=== PATIENT | female | born 1980 | race Caucasian/White ===

== ENCOUNTER 2016-11-11 07:51 | Emergency (ER) | payer BC, MEDICAID ==
[2016-11-11 07:51] VITALS: BMI 26.5
[2016-11-11] MEDS ORDERED: Sodium Chloride 0.9% 1,000 ML IV ONE (08:19)
[2016-11-11] MEDS ORDERED: diaZEpam 10 mg/2 ml Inj IVP STA (08:19)
--- NOTE | 2016-11-11 08:25 | C.PDOC ---
History Of Present Illness 36 y/o female presents to the ED with complaints of left sided neck pain x 4 days. She describes the pain as a stiffness. She reports that it started the morning after a previously strenous nightly workout. She took motrin and applied hot packs without relief. Denies trauma, fever, midline pain, chest pain , SOB, nausea, vomiting, headache or any other complaints. Denies vision changes, weakness, numbness or tingling. Time Seen by Provider: 11/11/16 08:08 Chief Complaint (Nursing): Back Pain History Per: Patient History/Exam Limitations: no limitations Onset/Duration Of Symptoms: Days Current Symptoms Are (Timing): Still Present Severity: Mild Previous Symptoms: None Associated Symptoms: None Recent travel outside of the [place]: No Past Medical History Reviewed: Historical Data, Nursing Documentation, Vital Signs Vital Signs: Last Vital Signs Temp 98.3 F 11/11/16 07:56 Pulse 59 L 11/11/16 07:56 Resp 16 11/11/16 07:56 BP 131/93 H 11/11/16 07:56 Pulse Ox 99 11/11/16 12:16 - Medical History PMH: Anxiety, Depression Surgical History: Family History: States: Unknown Family Hx - Social History Hx Tobacco Use: Yes Hx Alcohol Use: No Hx Substance Use: No - Immunization History Hx Tetanus Toxoid Vaccination: Yes Hx Influenza Vaccination: No Hx Pneumococcal Vaccination: No Review Of Systems Except As Marked, All Systems Reviewed And Found Negative. Constitutional: Negative for: Fever, Chills Eyes: Negative for: Vision Change, Conjunctivae Inflammation Cardiovascular: Negative for: Chest Pain Respiratory: Negative for: Cough, Shortness of Breath, SOB with Excertion, Wheezing Gastrointestinal: Negative for: Nausea, Vomiting Musculoskeletal: Positive for: Neck Pain (stiffness to L side). Negative for: Back Pain Neurological: Negative for: Weakness, Numbness, Incoordination, Change in Speech , Confusion, Seizures, Altered Mental Status, Headache, Dizziness Physical Exam - Physical Exam Appears: Well, Non-toxic, No Acute Distress Skin: Warm, Dry, No Rash Head: Atraumatic, Normacephalic Eye(s): bilateral: Normal Inspection, PERRL, EOMI Neck: Normal ROM, No Midline Cervical Tenderness, Paracervical Tenderness ( paraspinal muscle spasm to L side), Supple Chest: Symmetrical Cardiovascular: Rhythm Regular Respiratory: Normal Breath Sounds, No Rales, No Rhonchi, No Wheezing Gastrointestinal/Abdominal: Normal Exam, Soft, No Tenderness Extremity: Normal ROM (upper and lower extremities) Pulses: Left Radial: Normal, Right Radial: Normal Neurological/Psych: Oriented x3, Normal Speech, Normal Cognition, Normal Cranial Nerves, Normal Motor, Normal Sensation Gait: Steady ED Course And Treatment O2 Sat by Pulse Oximetry: 99 (room air) Pulse Ox Interpretation: Normal Medical Decision Making Medical Decision Making: Patient has palpable muscle spasm. She is neurologically intact. She has symptoms consistent with musculoskeletal pain/spasm Ordered valium, toradol and IV fluids and flexeril After medication, patient reports symptoms are improved. Disposition - Disposition Disposition: HOME/ ROUTINE Disposition Time: 11:28 Condition: GOOD Additional Instructions: Motrin for pain. Flexeril for severe pain. Return to ED if condition worsens. Follow-up with PMD within 2 days. Prescriptions: Cyclobenzaprine [Flexeril] 5 mg PO TID #20 tab Instructions: Muscle Spasm (ED) Forms: Work Excuse - Clinical Impression Clinical Impression: Muscle spasm, Neck pain - Scribe Statement The provider has reviewed the documentation as recorded by the Dolly Tan Provider Attestation: All medical record entries made by the Dolly were at my direction and personally dictated by me. I have reviewed the chart and agree that the record accurately reflects my personal performance of the history, physical exam, medical decision making, and the department course for this patient. I have also personally directed, reviewed, and agree with the discharge instructions and disposition.
[2016-11-11] MEDS ORDERED: diaZEpam 10 mg/2 ml Inj ONE (09:13)
[2016-11-11] MEDS ORDERED: Sodium Chloride 0.9% 1,000 ML ONE (09:13)
[2016-11-11 12:32] VITALS: BP 122/76; PULSE 51; RESP 18; TEMP 98.4; O2SAT 100
== END 2016-11-11 12:34 | disposition home or self-care (01) ==
LOC: C.ER 07:51
DX: M54.2 Cervicalgia (principal); M62.838 Other muscle spasm
CPT/HCPCS: 96361; 96374; 96375; 99284; J1885; J3360; J7040

== ENCOUNTER 2017-05-22 16:24 | Emergency (ER) | payer BC, OTHER ==
[2017-05-22 16:32] VITALS: BMI 25.8
[2017-05-22 16:33] VITALS: BP 118/75; PULSE 75; RESP 20; TEMP 100.4; O2SAT 99
--- NOTE | 2017-05-22 16:59 | C.PDOC ---
History Of Present Illness 37yo female, presents to ED with complaints of fever (Tmax of 104), chills, cough and myalgias for the past 2 days. She has been taking OTC Dayquil and Nyquil for her symptoms with no relief. She denies any other medical complaints. Time Seen by Provider: 05/22/17 16:31 Chief Complaint (Nursing): Flu-like Symptoms History Per: Patient History/Exam Limitations: no limitations Onset/Duration Of Symptoms: Days (2) Current Symptoms Are (Timing): Still Present Associated Symptoms: Fever, Sore Throat, Cough, Myalgias Past Medical History Reviewed: Historical Data, Nursing Documentation, Vital Signs Vital Signs: Last Vital Signs Temp 100.4 F H 05/22/17 16:32 Pulse 75 05/22/17 16:32 Resp 20 05/22/17 16:32 BP 118/75 05/22/17 16:32 Pulse Ox 99 05/22/17 17:07 - Medical History PMH: Anxiety, Depression Surgical History: Family History: States: Unknown Family Hx - Social History Hx Tobacco Use: Yes Hx Alcohol Use: No Hx Substance Use: No - Immunization History Hx Tetanus Toxoid Vaccination: Yes Hx Influenza Vaccination: No Hx Pneumococcal Vaccination: No Review Of Systems Constitutional: Positive for: Fever, Chills, Malaise Respiratory: Positive for: Cough Physical Exam - Physical Exam Appears: Non-toxic, Other (uncomfortable) Skin: Warm, Dry Eye(s): bilateral: Normal Inspection Ear(s): Bilateral: Normal Oral Mucosa: Moist Throat: Normal, No Erythema, No Exudate Neck: Normal ROM, Supple Cardiovascular: Rhythm Regular Respiratory: Normal Breath Sounds Gastrointestinal/Abdominal: Normal Exam, Soft, No Tenderness ED Course And Treatment O2 Sat by Pulse Oximetry: 99 (RA) Pulse Ox Interpretation: Normal Medical Decision Making Medical Decision Making: Impression: Flu like symptoms Plan: -- Patient to be discharged home with prescription for Tamiflu. Instructed to increase fluid intake and to follow up with PCP in 1-2 days. Disposition Counseled Patient/Family Regarding: Diagnosis, Need For Followup, Rx Given - Disposition Referrals: [facility] [Outside] Disposition Time: 17:03 Additional Instructions: Drink increased fluids. Alternate Tylenol and Motrin for fever and bodyaches. INcreased rest. If sandro any nyquil/theraful like medications, then please read labe to make sure not taking too much of any one ingredient. Prescriptions: Oseltamivir Phosphate [Tamiflu] 75 mg PO BID #10 capsule Instructions: Influenza (ED) Forms: [facility] (Lao), General Discharge Instructions - Clinical Impression Clinical Impression: Influenza - PA / CARDIAC TECHNOLOGIST / Resident Statement MD/DO has reviewed & agrees with the documentation as recorded. - Scribe Statement The provider has reviewed the documentation as recorded by the Dolly Garland Provider Scribe Attestation: All medical record entries made by the Dolly were at my direction and personally dictated by me. I have reviewed the chart and agree that the record accurately reflects my personal performance of the history, physical exam, medical decision making, and the department course for this patient. I have also personally directed, reviewed, and agree with the discharge instructions and disposition.
== END 2017-05-22 17:13 | disposition home or self-care (01) ==
LOC: C.ER 16:24
DX: J11.1 Influenza due to unidentified influenza virus with other respiratory manifestations (principal); Z72.0 Tobacco use

== ENCOUNTER 2017-08-23 13:52 | Emergency (ER) | payer SELFPAY ==
[2017-08-23 14:02] VITALS: PULSE 79; RESP 18; TEMP 98.1; O2SAT 98; BMI 27.3
--- NOTE | 2017-08-23 17:02 | C.PDOC ---
History Of Present Illness 37 year old female presents to the ER with a complaint of a pimple to the left breast. Patient states the pimple has been slowly improving and denies any fever or drainage from the breast. Patient notes she is due to have her breast implants removed next week. Chief Complaint (Nursing): Abnormal Skin Integrity History Per: Patient History/Exam Limitations: no limitations Onset/Duration Of Symptoms: Days Current Symptoms Are (Timing): Still Present Location Of Injury: Left: Chest (Pimple) Recent travel outside of the [place]: No Past Medical History Reviewed: Historical Data, Nursing Documentation, Vital Signs Vital Signs: Last Vital Signs Temp 98.1 F 08/23/17 13:59 Pulse 79 08/23/17 13:59 Resp 18 08/23/17 13:59 BP Pulse Ox 98 08/23/17 17:03 - Medical History PMH: Anxiety, Depression Surgical History: Family History: States: Unknown Family Hx - Social History Hx Tobacco Use: Yes Hx Alcohol Use: No Hx Substance Use: No - Immunization History Hx Tetanus Toxoid Vaccination: No Hx Influenza Vaccination: Yes Hx Pneumococcal Vaccination: No Review Of Systems Constitutional: Negative for: Fever, Chills Skin: Positive for: Other (Pimple) Physical Exam - Physical Exam Appears: Non-toxic Skin: Warm, Dry Head: Atraumatic, Normacephalic Eye(s): bilateral: Normal Inspection Oral Mucosa: Moist Chest: Other (Papule noted to the 3'o clock position of the left breast, no drainage or erythema) Cardiovascular: Rhythm Regular Respiratory: Normal Breath Sounds, No Rales, No Rhonchi, No Wheezing Neurological/Psych: Oriented x3, Normal Speech ED Course And Treatment O2 Sat by Pulse Oximetry: 98 (Room air) Pulse Ox Interpretation: Normal Disposition - Disposition Referrals: [facility], [Non-Staff] - Disposition: HOME/ ROUTINE Disposition Time: 14:30 Condition: GOOD Additional Instructions: Thank you for letting us take care of you today. The emergency medical care you received today was directed at your acute symptoms. If you were prescribed any medication, please fill it and take as directed. It may take several days for your symptoms to resolve. Return to the Emergency Department if your symptoms worsen, do not improve, or if you have any other problems. Please contact your doctor or call one of the physicians/clinics you have been referred to that are listed on the Patient Visit Information form that is included in your discharge packet. Bring any paperwork you were given at discharge with you along with any medications you are taking to your follow up visit. Our treatment cannot replace ongoing medical care by a primary care provider (PCP) outside of the emergency department. Thank you for allowing the [facility] team to be part of your care today. Follow up with your surgeon as scheduled. Forms: [employer] (Mexican) - Clinical Impression Clinical Impression: Skin irritation - Scribe Statement The provider has reviewed the documentation as recorded by the Scribjay Lundberg All medical record entries made by the Rickibe were at my direction and personally dictated by me. I have reviewed the chart and agree that the record accurately reflects my personal performance of the history, physical exam, medical decision making, and the department course for this patient. I have also personally directed, reviewed, and agree with the discharge instructions and disposition.
== END 2017-08-23 14:36 | disposition home or self-care (01) ==
LOC: C.ER 13:52
DX: L98.9 Disorder of the skin and subcutaneous tissue, unspecified (principal)

== ENCOUNTER 2017-11-15 13:42 | Emergency (ER) | payer SELFPAY ==
[2017-11-15 13:43] VITALS: BMI 27.3
--- NOTE | 2017-11-15 15:22 | C.PDOC ---
History Of Present Illness 37 year old female presents to the ER with complaints of sore throat and white tongue for 1 week. Patient states that she tried to brush her tongue with no relief. Patient notes she also has mild nasal congestion. Patient denies fever, difficulty breathing, swallowing, cough, SOB and chest pain. Sick contacts: daughter with same symptoms Time Seen by Provider: 11/15/17 14:00 Chief Complaint (Nursing): ENT Problem History Per: Patient History/Exam Limitations: no limitations Onset/Duration Of Symptoms: Days Current Symptoms Are (Timing): Still Present Sick Contacts (Context): Family Member(s) (daughter) Associated Symptoms: Sore Throat, Nasal Congestion, Other (white tongue). denies: Fever Past Medical History Reviewed: Historical Data, Nursing Documentation, Vital Signs Vital Signs: Last Vital Signs Temp 99.0 F 11/15/17 15:33 Pulse 81 11/15/17 15:33 Resp 16 11/15/17 15:33 BP 121/68 11/15/17 15:33 Pulse Ox 99 11/15/17 16:59 - Medical History PMH: Anxiety, Depression Surgical History: Family History: States: Unknown Family Hx - Social History Hx Tobacco Use: Yes Hx Alcohol Use: No Hx Substance Use: No - Immunization History Hx Tetanus Toxoid Vaccination: No Hx Influenza Vaccination: Yes Hx Pneumococcal Vaccination: No Review Of Systems Except As Marked, All Systems Reviewed And Found Negative. Constitutional: Negative for: Fever ENT: Negative for: Other (difficulty swallowing) Cardiovascular: Negative for: Chest Pain Respiratory: Negative for: Cough, Shortness of Breath, Other (difficulty breathing) Physical Exam - Physical Exam Appears: Well, Non-toxic, No Acute Distress Skin: Normal Color, Warm, Dry Head: Atraumatic, Normacephalic Eye(s): bilateral: Normal Inspection, EOMI Nose: Normal Oral Mucosa: Moist Tongue: No Swelling, Other (? very mild white coating to tongue that does not scrape off. (-) plaques (-) erythema) Lips: No Swelling Throat: Erythema (mild), No Exudate Neck: Normal ROM, Supple Chest: Symmetrical Cardiovascular: Rhythm Regular Respiratory: Normal Breath Sounds, No Accessory Muscle Use, Other (speaking in full sentences) Extremity: Normal ROM Neurological/Psych: Oriented x3, Normal Speech, No Other (focal deficits) ED Course And Treatment O2 Sat by Pulse Oximetry: 99 (RA) Pulse Ox Interpretation: Normal Progress Note: Impression: 37 year old female patient with sore throat and white tongue. Plans: -- Ibuprofen. -- Throat Cx. -- rapid strep test. On re -evaluation, patient is resting comfortably, tolerating PO, and is afebrile at this time. Discussed with pt that symptoms may be viral and she should do symptomatic treatment for another few days. If symtpoms persist or worsen, fill abx and advise to f/u with PCP in 1-2 days . Disposition - Disposition Disposition: HOME/ ROUTINE Disposition Time: 15:20 Condition: STABLE Additional Instructions: Follow up with your primary medical doctor or clinic in 2-5 days for further evaluation. Take medications as prescribed. Return to the emergency department at any time if symptoms persist or worsen. Prescriptions: Amoxicillin 875 mg PO BID #14 tablet Ibuprofen [Motrin] 600 mg PO Q6 PRN #20 tab PRN Reason: Pain, Mild (1-3) Instructions: Sore Throat, Adult (DC) Forms: [employer] (Greenlandic) - Clinical Impression Clinical Impression: Pharyngitis - PA / SECURITY BUSINESS ANALYST / Resident Statement / has reviewed & agrees with the documentation as recorded. - Scribe Statement The provider has reviewed the documentation as recorded by the Dolly Lee Do All medical record entries made by the Scribjay were at my direction and personally dictated by me. I have reviewed the chart and agree that the record accurately reflects my personal performance of the history, physical exam, medical decision making, and the department course for this patient. I have also personally directed, reviewed, and agree with the discharge instructions and disposition.
[2017-11-15 15:35] VITALS: BP 121/68; PULSE 81; RESP 16; TEMP 99
[2017-11-15 16:15] VITALS: O2SAT 99
== END 2017-11-15 15:35 | disposition home or self-care (01) ==
LOC: C.ER 13:42
DX: J02.9 Acute pharyngitis, unspecified (principal)